=== PATIENT | male | born 1945 | race Caucasian/White ===

== ENCOUNTER 2019-04-19 00:04 | Inpatient (IN) | payer OTHER ==
[~2019-04-19] VITALS: Ht 177.8 cm; Wt 81.6 kg
[2019-04-19] MEDS ORDERED: NAMZARIC 28 MG1 EACH PO (00:21)
[2019-04-19] MEDS ORDERED: PLAVIX75 M1 PO (00:21)
[2019-04-19] MEDS ORDERED: HYDROCODONE-AC1 EAC1 PO (00:22)
[2019-04-19] MEDS ORDERED: MELATONIN3 M3 PO (00:23)
[2019-04-19] MEDS ORDERED: MOM30 M1 PO (00:24)
[2019-04-19] MEDS ORDERED: ZOLOFT25 MG PO (00:25)
[2019-04-19] MEDS ORDERED: FLOMAX0.4 MG PO (00:25)
--- NOTE | 2019-04-19 02:16 | NUR ---
DR RIVERA NOTIFIED OF MEDICAL CONSULT. CONSULT TO GO UNDER DR MENENDEZ.
[2019-04-19 02:36] VITALS: BP 182/106; BP 202/104
--- NOTE | 2019-04-19 03:08 | NUR ---
KRAIG FINK a 73 year old M admitted via ambulance from the ADMITTING as a emergency 72 hr. hold admission. Arrived on unit at 0208AM. ALLERGIES: VERAPAMIL, DICLOFENAC. Vital signs are: 98.1-78-16 202/104. CLIENT IS PINK SLIPPED FROM [facility] AND UNABLE TO SIGN the following forms with stated understanding: Authorization For The Release of Medical Information, Clothing List, Consent to Voluntary Admission and Hospitalization, Consent and Release Forms/Receipt of Rights, Acknowledgement of Advance Directive Information, Behavioral Health Consent Form, and Informed Consent of Medications. Admitted under the services of Dr. MARK VILLASENORRACHELE. A search was conducted and hazardous articles were removed. Client was oriented to the unit. DR RIVERA ON FLOOR TO SEE CLIENT. INFORMED HER OF ELEVATED BLOOD PRESSURE AND CLIENT C/O ABDOMINAL PAIN BACK PAIN. CLIENT DID RELAX AFTER LAYING DOWN IN BED. OC MITCHELL
--- NOTE | 2019-04-19 03:27 | NUR ---
NORCO GIVEN FOR C/O BACK PAIN 11/01.
[2019-04-19 04:53] VITALS: BP 200/110
--- NOTE | 2019-04-19 04:55 | NUR ---
DR UPDATED ON BP AND THAT CATAPRESS JUST LOCATED BY METAL DRESSER.
--- NOTE | 2019-04-19 05:08 | NUR ---
CATAPRESS GIVEN. PT STATES BACK PAIN NOW A 5/10 BUT LOWER ABDOMIN STILL HURTS. (CLIENT WAS SLEEPING WHEN I ENTERED ROOM) ABD SOFT WITH NO GUARDING NOTED. BOWEL SOUNDS HYPERACTIVE X'S 4. WILL CONTINUE TO MONITOR
--- NOTE | 2019-04-19 05:55 | NUR ---
BP COMING DOWN POST CLONIPEN. STATES HE IS FEELING BETTER.
--- NOTE | 2019-04-19 05:59 | NUR ---
DR RIVERA ON FLOOR UPDATE PROVIDED
--- NOTE | 2019-04-19 06:47 | NUR ---
NOTIFIED VIRGIE KAY ABOUT ADMISSION
[2019-04-19 07:35] LABS: BASO % 0.2 % (0.0-1.0); EOS # 0.1 10*3/uL (0.0-0.4); EOS % 0.7 % (1.0-4.0); HEMATOCRIT 35.3 % (42.0-52.0); HEMOGLOBIN 11.8 g/dl (14.0-18.0); LYMPH # 0.8 10*3/uL (1.3-4.4); LYMPH % 7.2 % (27.0-41.0); MEAN CELL VOLUME 98.6 fl (80.0-94.0); MEAN CORPUSCULAR HGB CONC 33.4 g/dl (33.0-37.0); MEAN PLATELET VOLUME 10.7 fl (9.6-12.3); MONO % 9.4 % (3.0-9.0); NEUT % 82.1 % (47.0-73.0); PLATELET COUNT AUTOMATED 221 10*3/uL (130-400); RED BLOOD COUNT 3.58 10*6/uL (4.50-5.90); RED CELL DISTRI WIDTH 11.9 % (0-14.5)
[2019-04-19 07:52] VITALS: BP 130/68
[2019-04-19 08:05] LABS: ALBUMIN 2.9 gm/dl (3.1-4.5); BUN 13 mg/dl (7-24); CHLORIDE 107 mmol/L (98-107); CHOLESTEROL 139 mg/dL (<200); CREATININE 0.86 mg/dL (0.70-1.30); POTASSIUM 3.9 mmol/L (3.5-5.1); SGOT/AST 23 IU/L (3-35); SGPT/ALT 22 U/L (12-78); SODIUM 140 mmol/L (136-145); TOTAL PROTEIN 6.7 gm/dL (6.4-8.2); TRIGLYCERIDES 62 mg/dl (<150); VLDL CHOLESTEROL 12 mg/dL (6-40)
[2019-04-19 08:14] LABS: ALKALINE PHOSPHATASE 66 U/L (45-117); HDL CHOLESTEROL 57 mg/dl (40-60); LDL CHOLESTEROL 70 mg/dL (9-159)
--- NOTE | 2019-04-19 08:58 | NUR ---
Patient resting quietly with no c/o discomfort. Respirations easy and regular. Vital signs stable. No overt distress. GIVENS,MEGAN
[2019-04-19 09:06] LABS: VITAMIN D, 25-HYDROXY 31.8 ng/mL (30-100)
--- NOTE | 2019-04-19 12:38 | NUR ---
COMPLETED PSYCHOSOCIAL HX THIS DATE
--- NOTE | 2019-04-19 16:21 | NUR ---
PT ISOLATIVE TO ROOM. QUIET AND NOT INTERACTIVE WITH PEERS. ENCOURAGED PT TO INTERACT WITH PEERS IN DINNINGROOM AND PT REFUSED. PT SAT AT AN OPPOSITE TABLE THAN PEERS. A&O X3. NO PARANOIA NOTED TODAY. BEHAVIORS MONITORED WITH Q15 MINUTE SAFETY CHECKS. SEE [facility] [place] [facility] FOR SPECIFIC MONITORING.
[2019-04-19 20:00] VITALS: BP 136/84
--- NOTE | 2019-04-19 21:31 | NUR ---
SON CALLED INQUIRING TO REASONS HIS FATHER WAS ADMITTED TO A PSYCHIATRIC UNIT. TOOK PHONE TO CLIENT SO HE COULD TALK TO HIM. NORCO GIVEN AT 2130 FOR C/O BACK PAIN 11/01
--- NOTE | 2019-04-19 22:31 | NUR ---
SLIGHT DECREASE IN PAIN SINCE BEING MEDICATED
--- NOTE | 2019-04-20 00:42 | NUR ---
24 HR chart check completed.
--- NOTE | 2019-04-20 05:50 | NUR ---
tylenol given for c/o head and back pain 11/01
--- NOTE | 2019-04-20 06:07 | NUR ---
SLEPT POORLY. LAID IN BED QUIETLY AND SLEPT APPROX 4 HOURS. ENCOURAGED CLIENT TO STAY OUT OF BED AND INCREASE ACTIVITY TO STRAIGHEN OUT DAYS AND NIGHT. VERBALIZED UNDERSTAND. WILL PASS ON TO REINFORCE
[2019-04-20 07:37] VITALS: BP 152/90
--- NOTE | 2019-04-20 08:00 | NUR ---
Treatment Plan meeting was held with Dr. Aguilar, MADDY Warner, RN, AT, TRUCK RAILROAD AND BUS MOTOR MECHANIC-S and Pipe Recovery Specialist in attendance. Plan for discharge when Stable. Pt. came to [facility] from [facility]. Will reach out to facility today to discuss discharge Planning.
--- NOTE | 2019-04-20 09:53 | NUR ---
Faxed admission clinical to [facility]. Awaiting response.
--- NOTE | 2019-04-20 09:55 | NUR ---
PHYSICAL THERAPY Screen received spoke with Nurse Yani pt is from home, pt's gait has been unsteady and was issued a walker but "having trouble using it" spoke w pt he uses a fww on occasion at home not a stnd walker that was given to him, discussed with nurse and also requested PT eval for further evaluation. Selina Karimi PT
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
--- NOTE | 2019-04-20 11:36 | NUR ---
Spoke with Jereym at [facility] ([phone]). Jeremy stated that they received a referral for pt over the weekend. Provided Jeremy with information that this service writer had obtained about pt. At time of discharge, a call is to be made to [facility] with discharge disposition.
--- NOTE | 2019-04-20 11:49 | NUR ---
ASSESSMENT SPENT TIME ASSESSING PT. PT WAS IRRITABLE BUT COOPERATIVE. PT STATES HE HAS NO LEISURE INTERESTS OUTSIDE OF FARMING. PT WILL BE ENCOURAGED TO ATTEND GROUP THERAPY.
--- NOTE | 2019-04-20 11:51 | NUR ---
Clinical Updates faxed to [facility] Attn: Roseann to complete Resident Review.
--- NOTE | 2019-04-20 15:13 | NUR ---
P: DEPRESSED MOOD, SLIGHTLY IRRITABLE. I: ONE ON ONE, REDIRECTION NEEDED R: EFFECTIVE. PATIENT IS ALERT TO PERSON AND SITUATION WITH CONFUSION; ABLE TO VOICE NEEDS. LONG/SHORT TERM MEMORY DEFICITS. DENIES ANY HALLUCINATIONS, DELUSIONS, HI/SI OR PAIN. MEDICATION COMPLAINT WITH EDUCATION PROVIDED. Q 15 MINUTE SAFETY CHECKS MAINTIAINED. 1 PERSON ASSIST VIA VERBAL CUEING WITH ACTIVITIES OF DAILY LIVING, CONTINENT OF BOWEL AND BLADDER. SET UP FOR MEALS, INTAKES ARE FAIR. AMBULATES WITH WHEELED WALKER. INTERACTIVE WITH STAFF AND OTHER PATIENTS. PARTICPATES IN GROUP SESSION. P: MONTITOR FOR AGGRESSION AND VERBAL THREATENING OF STAFF. PROVIDE ONE ON ONE AND REDIRECTION NEEDED.
--- NOTE | 2019-04-20 15:34 | NUR ---
PM GROUP PT WAS PERSUADED TO ATTEND AFTERNOON GROUP THERAPY AND PARTICIPATED BY SOCIALIZING WITH A PEER WHOM HE HAD WORKED WITH AND KNEW. PT EXHIBITED NO AGITATION WHILE IN GROUP.
--- NOTE | 2019-04-20 18:25 | NUR ---
PATIENT COMPLAINING OF LOWER BACK PAIN, RATING PAIN 7/10. PRN NORCO 5/325MG PO GIVEN AT THIS TIME.
[2019-04-20 19:48] VITALS: BP 147/69
--- NOTE | 2019-04-20 20:43 | NUR ---
EVENING/LEISURE SKILLS PT CHOSE NOT TO ATTEND BUT TO REMAIN IN ROOM RESTING AT THIS TIME.
--- NOTE | 2019-04-20 21:30 | NUR ---
Patient alert to self and situation with confusion noted. Memory deficits noted. Patient isolative to his room before snacks and refused to participate in group therapy this evening. Mood calm but with underlying irritability noted. Patient denies HI/SI at this time. No overt s/s of any responding to internal stimuli noted. Patient compliant with HS medications without any difficulty. Provided 1:1 for therapeutic communication and emotional support. Redirected/reoriented easily when needed/appropriate. Plan to continue to encourage medication compliance and continue to provide emotional support. Also continue to redirect/reorient when needed/appropriate. Will continue to monitor moods/behaviors. Q 15 minute safety checks continued and maintained. See [facility] flowsheet for further documentation.
--- NOTE | 2019-04-21 08:00 | NUR ---
Treatment Plan meeting was held with Dr. Aguilar RN, SHEET METAL JOURNEYMAN Alana, RN, AT, FIRE ENGINE OPERATOR-S and Detailer School Photographs in attendance. Plan for discharge today with return home. Pt. refused Home Health when discussed yesterday. Follow Up appointment Scheduled.
[2019-04-21 08:07] VITALS: BP 150/70
--- NOTE | 2019-04-21 09:24 | NUR ---
PHYSICAL THERAPY Daniel completed moderate level of complexity [id number] pt from SNF/rehab could benefit from return for further therapy however per staff pt is to be discharged to home today with family recomend home health and 24 hour care/supervision due to impaired cognitive status. Selina Karimi PT
--- NOTE | 2019-04-21 09:40 | NUR ---
Occupational therapy orders received and OT evaluation completed in full on floor three. Patient precautions include fall risk, ww use, decreased command follow, poor safety awareness, and right sided visual impairments. Patient would benefit from a SNF, however per discussion with patient and staff is being discharged home today. If discharged home, patient would benefit from SN, OT, and PT with 24/7 supervision assist secondary to impaired cognition and to patient safety. [place] complexity [place], [address]. Thank you for the referral. Nevin Haq, OTR/L
[2019-04-21] MEDS ORDERED: HYDROXYZINE PAM25 M1 PO (09:51)
[2019-04-21] MEDS ORDERED: MIRTAZAPINE15 M2 PO (09:51)
[2019-04-21] MEDS ORDERED: ROZEREM8 MG PO (09:51)
--- NOTE | 2019-04-21 11:42 | NUR ---
AM GROUP PT DID NOT ATTEND MORNING GROUP THERAPY. PT IS READYING TO DISCHARGED FROM THE UNIT THIS AFTERNOON.
--- NOTE | 2019-04-21 11:52 | NUR ---
SPOKE WITH DR BAILEY RE: PT DISCHARGE FOR TODAY AND MEDICAL MEDS NEEDING COMPLETEING. NO FURTHER ORDERS AT THIS TIME.
--- NOTE | 2019-04-21 12:42 | NUR ---
PATIENT READY FOR DISCHARGE. REVIEWED DISCHARGE INSTRUCTION AND PATIENT SIGNED ALL DISCHARGE INSTRUCTIONS. ALL QUESTIONS ANSWERED. FAMILY MEMBER PRESENT. ALL BELONGING GATHERED AND SENT [facility] PATIENT. PATIENT ASSISTED TO WHEELCHAIR WITH STAFF ASSISTANCE OFF UNIT TO PRIVATE VEHICLE.
--- NOTE | 2019-04-21 14:13 | NUR ---
IP 3 days constantin per José Miguel rocha [facility]. Ref # [id number]. LCD and NRD 04/21.
--- NOTE | 2019-04-22 11:49 | NUR ---
Patient discharged yesterday to home with family. Pt and his DPOAHC Kristopher Carroll denied the need for pt to follow with a psychiatrist. Pt and Kristopher refused psychiatric follow-up appointment. Follow-up was scheduled with pt's PCP Dr Prabhakar. Spoke with Jeremy of [facility] and informed her of pt's discharge.
--- NOTE | 2019-04-22 13:09 | NUR ---
Received Call From Dee Davila at [place] [employer] ([employer] who works with [facility] and is requesting Discharge Paperwork Faxed [phone] to follow Patient Post Discharge.
== END 2019-04-21 12:42 | disposition home or self-care (01) | DRG 883 ==
LOC: 3N 00:04
PROVIDERS: ADMIT Psychiatry & Neurology Psychiatry
DX: F63.81 Intermittent explosive disorder (principal); F33.2 Major depressive disorder, recurrent severe without psychotic features; N40.0 Benign prostatic hyperplasia without lower urinary tract symptoms; I10 Essential (primary) hypertension; G89.29 Other chronic pain; I16.0 Hypertensive urgency; F41.9 Anxiety disorder, unspecified; M54.9 Dorsalgia, unspecified; R29.6 Repeated falls; Z96.652 Presence of left artificial knee joint; Z88.6 Allergy status to analgesic agent; Z88.8 Allergy status to other drugs, medicaments and biological substances; Z79.899 Other long term (current) drug therapy